=== PATIENT | female | born 1995 | race Caucasian/White ===

== ENCOUNTER 2018-05-22 21:41 | Emergency (ER) | payer OTHER ==
[~2018-05-22] VITALS: Ht 165.1 cm; Wt 72.6 kg
[2018-05-22] MEDS ORDERED: NKM (21:53)
--- NOTE | 2018-05-22 22:04 | Emergency Room Report ---
History of Present Illness General Chief Complaint: Back Pain-No Injury Source: Patient Present Illness HPI Is a 22-year-old female with no past medical history. She presents with chief complaint of sore throat, headache, back pain. Onset today. Fever today. Worse with swallowing. No dysuria frequency. No nausea no vomiting. Decreased appetite however. Nothing made it better. Any movement made it worse. Allergies: Coded Allergies: No Known Allergies (Unverified , 05/22/18) Patient History Past Medical History: none, see triage record, old chart reviewed Past Surgical History: none Pertinent Family History: none Social History: Denies: smoking Last Menstrual Period: April Now: No Immunizations: other Reviewed Nursing Documentation: PMH: Agreed; PSxH: Agreed Nursing Documentation-PMH Past Medical History: No Stated History Review of Systems Constitutional: Reports: fever Eye: Denies: eye pain, blurred vision ENT: Reports: throat pain; Denies: ear pain, nose congestion, throat swelling Respiratory: Denies: cough, shortness of breath Cardiovascular: Denies: chest pain, palpitations Gastrointestinal: Denies: abdominal pain, diarrhea, nausea, vomiting Musculoskeletal: Reports: back pain; Denies: joint pain Skin: Denies: rash Neurological: Denies: headache, numbness Endocrine: Denies: increased thirst, increased urine Hematologic/Lymphatic: Denies: easy bruising All Other Systems: negative except mentioned in HPI Physical Exam Vital Signs Date Time Temp Pulse Resp B/P (MAP) Pulse Ox O2 Delivery O2 Flow Rate FiO2 05/22/18 21:48 100.8 106 20 118/71 98 Room Air 100.8 vitals with fever Sp02 EP Interpretation: reviewed, normal General Appearance: well appearing, no apparent distress, alert, other - ill- appearing Head: normocephalic, atraumatic Eyes: bilateral eye PERRL, bilateral eye EOMI ENT: hearing grossly normal, normal pharynx, tonsillar swelling, pharyngeal erythema, tonsillar exudate Neck: full range of motion, supple, no meningismus Respiratory: chest non-tender, lungs clear, normal breath sounds Cardiovascular #1: regular rate, rhythm, no murmur Gastrointestinal: normal bowel sounds, non tender, no mass, no organomegaly, no bruit, non-distended Musculoskeletal: back normal, gait/station normal, normal range of motion Psychiatric: mood/affect normal Skin: warm/dry Medical Decision Making Diagnostic Impression: Primary Impression: Acute tonsillitis Qualified Codes: J03.90 - Acute tonsillitis, unspecified ER Course Patient with fever, sore throat, and back pain. She has acute tonsillitis. Most likely strep. No evidence of peritonsillar abscess, retropharyngeal abscess or Femi angina. Back pain is probably secondary to inflammatory changes. No evidence of UTI or pyelonephritis. No evidence of any sepsis. She felt better now. We'll discharge home. Lab Results Impression labs with elevated WBC Last Vital Signs Date Time Temp Pulse Resp B/P (MAP) Pulse Ox O2 Delivery O2 Flow Rate FiO2 05/22/18 21:48 100.8 106 20 118/71 98 Room Air 100.8 Status: improved Disposition: HOME, SELF-CARE Condition: Stable Scripts Ibuprofen* (MOTRIN*) 600 Mg Tablet 600 MG ORAL THREE TIMES A DAY, #30 TAB 0 Refills Prov: DALIA SELLERS M.D. 05/22/18 Amoxicillin* (AMOXIL*) 500 Mg Capsule 500 MG ORAL THREE TIMES A DAY, #21 CAP Prov: DALIA SELLERS M.D. 05/22/18 Additional Instructions: Increase fluids. Salt water gargle. Follow-up with your DrAntonette in 2-3 days for recheck if not better. Return if worse. DALIA SELLERS M.D. May 22, 2018 22:04
[2018-05-22 22:06] VITALS: BP 118/71
[2018-05-22 22:10] LABS: APPEARANCE,URINE CLEAR; BILIRUBIN, URINE NEGATIVE (NEGATIVE); COLOR,URINE YELLOW; GLUCOSE, URINE (UA) NEGATIVE (NEGATIVE); KETONES,URINE 3+ (NEGATIVE); LEUKOCYTE ESTERASE ,URINE 2+ (NEGATIVE); NITRITE,URINE NEGATIVE (NEGATIVE); PH,URINE 6.5 (4.5-8.0); PROTEIN,URINE 1+ (NEGATIVE); UROBILINOGEN,URINE NORMAL (NORMAL)
[2018-05-22] MEDS ORDERED: Ketorolac 30mg Inj IV ONE (22:15)
[2018-05-22] MEDS ORDERED: Dexamethasone 4mg/ml vial IVP ONE (22:15)
[2018-05-22] MEDS ORDERED: Acetaminophen 500mg (ES) tab ORAL ONE (22:15)
[2018-05-22 22:37] LABS: BASOPHILS % (AUTO) 0.5 % (0.0-2.0); EOSINOPHILS % (AUTO) 0.2 % (0.0-3.0); HEMATOCRIT 43.3 % (37.0-47.0); HEMOGLOBIN 14.9 G/DL (12.0-16.0); LYMPHOCYTES % (AUTO) 7.4 % (20.0-45.0); MEAN CORPUSCULAR VOLUME 85 FL (80-99); MONOCYTES % (AUTO) 9.1 % (1.0-10.0); NEUTROPHILS % (AUTO) 82.8 % (45.0-75.0); PLATELET COUNT 174 K/UL (150-450); RED BLOOD COUNT 5.11 M/UL (4.20-5.40); WHITE BLOOD COUNT 14.9 K/UL (4.8-10.8)
[2018-05-22 22:40] LABS: ANION GAP 9 mmol/L (5-15); BLOOD UREA NITROGEN 11 mg/dL (7-18); CALCIUM 9.1 MG/DL (8.5-10.1); CARBON DIOXIDE 26 MMOL/L (21-32); CHLORIDE 101 MMOL/L (98-107); SODIUM 136 MMOL/L (136-145)
[2018-05-22] MEDS ORDERED: cefTRIAXone 1 GM in NS 55 ML IVPB ONE (22:45)
[2018-05-22] MEDS ORDERED: Morphine Sulfate 4mg/ml Inj (IV USE ONLY) IVP ONE (22:45)
[2018-05-22] MEDS ORDERED: Morphine Sulfate 4mg/ml Inj (IV USE ONLY) ONE (22:47)
[2018-05-22] MEDS ORDERED: IBUPROFEN600 MG ORAL (22:54)
[2018-05-22] MEDS ORDERED: AMOXICILLIN500 MG ORAL (22:54)
[2018-05-22 23:39] VITALS: BP 103/64
== END 2018-05-22 23:40 | disposition home or self-care (01) ==
LOC: EMR 22:08
DX: J03.90 Acute tonsillitis, unspecified (principal)
CPT/HCPCS: 36415; 80048; 81001; 81025; 85025; 96361; 96365; 96375; 99284

== ENCOUNTER 2018-05-27 03:56 | Emergency (ER) | payer OTHER ==
[~2018-05-27] VITALS: Ht 165.1 cm; Wt 68.0 kg
[~2018-05-27 03:56] MED LIST: AMOXICILLIN500 MG ORAL; IBUPROFEN600 MG ORAL; NKM
[2018-05-27 04:10] VITALS: BP 114/78
--- NOTE | 2018-05-27 04:19 | Emergency Room Report ---
History of Present Illness General Chief Complaint: Sore Throat Source: Patient Present Illness HPI Is a 22-year-old female with no past medical history. She presents with chief complaint of sore throat. I saw her 5 days ago for fever or back pain and diagnosed her with tonsillitis. She said the back pain improved. Throat still hurting. She is almost done with her antibiotics. Worse with swallowing. No fever or chills. No nausea no vomiting. No drooling. Most her pain is localized to the right side. Allergies: Coded Allergies: No Known Allergies (Unverified , 05/22/18) Patient History Past Medical History: see triage record, old chart reviewed Past Surgical History: none Pertinent Family History: none Social History: Denies: smoking Last Menstrual Period: April Now: No Immunizations: other Reviewed Nursing Documentation: PMH: Agreed; PSxH: Agreed Nursing Documentation-PMH Past Medical History: No Stated History Review of Systems Eye: Denies: eye pain, blurred vision ENT: Reports: throat pain; Denies: ear pain, nose congestion, throat swelling Respiratory: Denies: cough, shortness of breath Cardiovascular: Denies: chest pain, palpitations Gastrointestinal: Denies: abdominal pain, diarrhea, nausea, vomiting Musculoskeletal: Denies: back pain, joint pain Skin: Denies: rash Neurological: Denies: headache, numbness Endocrine: Denies: increased thirst, increased urine Hematologic/Lymphatic: Denies: easy bruising All Other Systems: negative except mentioned in HPI Physical Exam Vital Signs Date Time Temp Pulse Resp B/P (MAP) Pulse Ox O2 Delivery O2 Flow Rate FiO2 05/27/18 04:01 100.9 96 18 115/82 96 100.9 vitals with fever Sp02 EP Interpretation: reviewed, normal General Appearance: well appearing, no apparent distress, alert Head: normocephalic, atraumatic Eyes: bilateral eye PERRL, bilateral eye EOMI ENT: hearing grossly normal, normal pharynx, pharyngeal erythema, other - no trismus. Neck: full range of motion, supple, no meningismus, tender - cervical adenopathy Respiratory: chest non-tender, lungs clear, normal breath sounds Cardiovascular #1: regular rate, rhythm, no murmur Gastrointestinal: normal bowel sounds, non tender, no mass, no organomegaly, no bruit, non-distended Musculoskeletal: back normal, gait/station normal, normal range of motion Psychiatric: mood/affect normal Skin: warm/dry Medical Decision Making Diagnostic Impression: Primary Impression: Peritonsillar abscess ER Course This patient presents with a peritonsillar abscess. She felt outpatient antibiotics. She received Rocephin and then amoxicillin 5 days ago. Now still with pain. No trismus. CT scan showed a right pontine peritonsillar abscess. Clindamycin given here. 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 We'll send patient to [facility] as a high level of care. Lab Results Impression labs unremarkable CT/MRI/US Diagnostic Results CT/MRI/US Diagnostic Results : Imaging Test Ordered: CT soft tissue neck Impression Read by radiologist. 2 cm x 1.4 cm x 2 cm ring-enhancing mass in the right palatine tonsil. Last Vital Signs Date Time Temp Pulse Resp B/P (MAP) Pulse Ox O2 Delivery O2 Flow Rate FiO2 05/27/18 04:01 100.9 96 18 115/82 96 100.9 Status: improved Disposition: ER [facility] Condition: Stable Referrals: NOT CHOSEN [place]/,REFERRING (PCP) DALIA SELLERS M.D. May 27, 2018 04:19
[2018-05-27] MEDS ORDERED: Ketorolac 30mg Inj IV ONE (04:30)
[2018-05-27] MEDS ORDERED: Morphine Sulfate 4mg/ml Inj (IV USE ONLY) IVP ONE ×2 (04:30→12:00)
[2018-05-27] MEDS ORDERED: Isovue-370 150ml vial INJ PRN (04:30)
[2018-05-27 05:04] LABS: BASOPHILS % (AUTO) 0.5 % (0.0-2.0); EOSINOPHILS % (AUTO) 1.8 % (0.0-3.0); HEMATOCRIT 41.3 % (37.0-47.0); HEMOGLOBIN 14.4 G/DL (12.0-16.0); LYMPHOCYTES % (AUTO) 12.2 % (20.0-45.0); MEAN CORPUSCULAR VOLUME 84 FL (80-99); MONOCYTES % (AUTO) 11.3 % (1.0-10.0); NEUTROPHILS % (AUTO) 74.3 % (45.0-75.0); PLATELET COUNT 213 K/UL (150-450); RED BLOOD COUNT 4.89 M/UL (4.20-5.40); RED CELL DISTRIBUTION WIDTH 9.8 % (11.6-14.8); WHITE BLOOD COUNT 11.8 K/UL (4.8-10.8)
[2018-05-27] MEDS ORDERED: Clindamycin 900mg 50 ML IVPB ONE (05:45)
[2018-05-27 06:05] VITALS: BP 116/67
--- NOTE | 2018-05-27 06:32 | Diagnostic Imaging Report ---
EXAM: CT Neck Without Intravenous Contrast. CLINICAL HISTORY: PAIN TECHNIQUE: Axial computed tomography images of the neck without intravenous contrast. CTDI is 19.2 mGy and DLP is 551 mGy-cm. One or more of the following dose reduction techniques were used: automated exposure control, adjustment of the mA and/or kV according to patient size, use of iterative reconstruction technique. COMPARISON: No relevant prior studies available. FINDINGS: Nasopharynx: Unremarkable. Oropharynx: There is asymmetric enlargement of the right palatine tonsil, with increased enhancement and edema. Findings likely represent a right-sided tonsillitis and early phlegmon. No definite fluid collection to suggest an abscess. Mild mass effect upon the oropharyngeal airway. Hypopharynx: Unremarkable. Larynx: Unremarkable. Normal epiglottis. Trachea: Unremarkable. Retropharyngeal space: Unremarkable. Submandibular/parotid glands: Unremarkable. Glands are normal in size. Lymph nodes: Mildly enlarged reactive right cervical lymph nodes measuring up to 15 mm in short axis diameter. Thyroid: Unremarkable. No enlarged or calcified nodules. Bones: No acute fracture. Lung apices: Unremarkable as visualized. IMPRESSION: Right tonsillitis, without evidence of peritonsillar abscess. Probable reactive, enlarged right cervical lymph nodes. [employer] 05/27/18 13:55 Call From [facility] states report incorrect needs to say CT neck WITH contrast. can you edit?
[2018-05-27 08:31] VITALS: BP 121/65
[2018-05-27 11:17] VITALS: BP 135/76
[2018-05-27] MEDS ORDERED: Dexamethasone 4mg/ml vial IVP ONE (11:30)
[2018-05-27 15:41] VITALS: BP 128/72
[2018-05-27 16:10] VITALS: BP 128/72
== END 2018-05-27 16:10 | disposition short-term general hospital (02) ==
LOC: EMR 04:16
DX: J36 Peritonsillar abscess (principal)
CPT/HCPCS: 36415; 70491; 85025; 96360; 96361; 96365; 96374; 96375; 99285; J2405; S0077